=== PATIENT | female | born 1985 ===

== ENCOUNTER → 2016-12-03 | Outpatient (CLI) | payer SELFPAY ==
--- NOTE | 2016-12-04 13:42 | US ---
EXAMINATION: Left Breast ultrasound HISTORY: Lump COMPARISON: None TECHNIQUE: Grayscale and color Doppler images obtained. FINDINGS: There is no abnormal mass or fluid collection noted. No skin thickening or abnormal color Doppler flow. There is a mildly prominent fibroglandular ridge noted within the region of the palpab le abnormality. A partially visualized breast implant is also noted. IMPRESSION: No suspicious sonographic abnormality noted within the region of concern. Please follow- up palpable abnormalities clinically.
== END ==
LOC: MW.CHFP 14:15
PROVIDERS: ATTEND Physician Assistant
DX: N63 Unspecified lump in breast (principal)
CPT/HCPCS: 76642-LT; 76642-LT-26